=== PATIENT | male | born 1930 | race Caucasian/White ===

== ENCOUNTER 2020-05-28 23:14 | Inpatient (IN) | payer OTHER ==
[~2020-05-28] VITALS: Ht 167.6 cm; Wt 70.8 kg
[2020-05-28] MEDS ORDERED: PROSCAR5 MG (23:30)
[2020-05-28] MEDS ORDERED: PEPCID AC20 MG (23:31)
[2020-05-28] MEDS ORDERED: ATACAND32 MG (23:31)
[2020-05-28] MEDS ORDERED: TAMS0.4C (23:32)
[2020-05-28] MEDS ORDERED: MIRALAX17 GM (23:32)
[2020-05-28] MEDS ORDERED: FUSION PLUS CA1 EACH (23:32)
[2020-05-28] MEDS ORDERED: TRENTAL (23:32)
[2020-05-28] MEDS ORDERED: SINGULAIR 10MG10 MG (23:33)
[2020-05-28] MEDS ORDERED: ALENDRONATE SOD70 MG (23:33)
[2020-05-28] MEDS ORDERED: DHA100 MG (23:33)
[2020-05-28] MEDS ORDERED: FORTAMET500 MG (23:33)
[2020-05-30] MEDS ORDERED: PENTOXIFYLLINE400 MG (13:23)
== END 2020-06-02 11:48 | disposition home or self-care (01) | DRG 811 ==
LOC: ER 23:14 → ICU-2 05-29 11:36 → SEC-K 05-30 19:46 → SURH 05-30 23:29
PROVIDERS: ADMIT Internal Medicine; ATTEND Internal Medicine
PROC: BW21ZZZ Computerized Tomography (CT Scan) of Abdomen and Pelvis (ICD-10-PCS; principal; 2020-05-29)
PROC: 30233N1 Transfusion of Nonautologous Red Blood Cells into Peripheral Vein, Percutaneous Approach (ICD-10-PCS; 2020-05-29)
DX: D50.0 Iron deficiency anemia secondary to blood loss (chronic) (principal); R57.1 Hypovolemic shock; K62.5 Hemorrhage of anus and rectum; N40.0 Benign prostatic hyperplasia without lower urinary tract symptoms; E11.9 Type 2 diabetes mellitus without complications; Z20.828 Contact with and (suspected) exposure to other viral communicable diseases; I10 Essential (primary) hypertension